=== PATIENT | female | born 1980 | race Caucasian/White ===

== ENCOUNTER → 2023-02-03 | Outpatient (CLI) | payer BC ==
[~2023-02-03] MED LIST: MOTRIN 600600 MG/TAB PO; PERCOCET 325 MG1 TA2 PO; PRENATAL VITAMI1 TA5 PO; SLOW FE160 MG
== END ==
LOC: MC.RAD 07:12
DX: Z12.31 Encounter for screening mammogram for malignant neoplasm of breast (principal); N63.41 Unspecified lump in right breast, subareolar

== ENCOUNTER → 2023-02-08 | Outpatient (CLI) | payer BC | LOC: MC.RAD 13:52 | DX: N60.01 Solitary cyst of right breast (principal) ==